=== PATIENT | female | born 1995 | race African-American/Black ===

== ENCOUNTER 2018-12-18 10:47 | Emergency (ER) | payer OTHER, SELFPAY ==
[2018-12-18] MEDS ORDERED: Lidocaine 1% (PF) 30 ML VIAL ONE ×2 (11:19→11:21)
[2018-12-18] MEDS ORDERED: Adacel (T-DAP) 0.5 ML SYRINGE ONE (11:21)
[2018-12-18] MEDS ORDERED: Bacitracin 1 PK ONE (11:59)
== END 2018-12-18 12:10 | disposition home or self-care (01) ==
LOC: NAV ERS 10:47
DX: S61.241A Puncture wound with foreign body of left index finger without damage to nail, initial encounter (principal); W45.8XXA Other foreign body or object entering through skin, initial encounter
CPT/HCPCS: 10120; 90471; 90715; J2001